=== PATIENT | female | born 1950 | race Caucasian/White ===

== ENCOUNTER 2018-01-02 05:31 | Inpatient (IN) | payer OTHER ==
[2018-01-02] VITALS (7 sets, daily range): BP systolic 132–155; BP diastolic 51–78
[~2018-01-02] VITALS: Ht 170.2 cm; Wt 118.4 kg
--- NOTE | ~2018-01-02 | O ---
[facility] [place] [address] OPERATIVE REPORT Name: JOELLEN WESTBROOK Room #: 150-9 [facility] M.R.#: [id number] Admission: 01/02/18 Attend Phys: Doc Avila MD Discharge: Date of : 54 Report #: [id number] THIS REPORT FOR: //name// CC: Heron Avila DATE OF SERVICE: 01/02/2018 PREOPERATIVE DIAGNOSIS: Left femoral neck insufficiency fracture. POSTOPERATIVE DIAGNOSIS: Left femoral neck insufficiency fracture. PROCEDURE: Percutaneous screw fixation, left femoral neck insufficiency fracture. SURGEON: Doc Avila MD. ANESTHESIA: LMA. IMPLANTS: 7.3 cannulated screws x 3, 90 mm in length x 2 and 85 mm x 1. ESTIMATED BLOOD LOSS: 10 mL. COMPLICATIONS: None. SPECIMENS: None. CONDITION UPON LEAVING THE OPERATING ROOM: Stable. INDICATIONS FOR PROCEDURE: The patient is a 67-year-old female who has had progressive left hip pain. She had an MRI scan, shown her to have an incomplete insufficiency fracture of the medial side of her femoral neck. After discussion with her, she elected for percutaneous screw fixation. DESCRIPTION OF PROCEDURE: Risks, benefits, alternatives, complications were discussed in detail with the patient including but not limited to risk of anesthesia, risk of damage to nerves, arteries, blood vessels, risk for infection, bleeding, risk for continued hip pain and need for reoperation. Informed consent was obtained from the patient. Left hip was appropriately marked in the preoperative holding area. IV Ancef was given for preoperative antibiotics. She was brought to the operating room and placed in supine position on the Abrams table. LMA anesthesia was induced without complication. Feet were padded and placed in the foot bartlett and left lower extremity was placed in slight traction. Right lower extremity was scissored. Timeout was performed properly identifying the patient and procedure as well as the instrumentation and implants. All in the operating room were in agreement. [address] [address] OPERATIVE REPORT Name: JOELLEN WESTBROOK Room #: 150-9 [facility] Elo.#: [id number] Admission: 01/02/18 Attend Phys: Doc Avila MD Discharge: Date of : 54 Report #: [id number] Fluoroscopic imaging was brought in to verify adequate AP and lateral images obtained of the hip. The left hip was then prepped and draped in normal sterile fashion. A lateral incision was made with 10 blade through the skin and fascia. Threaded tip guidewire was placed on the lateral cortex of the femur for the inferior posterior screw. This was taken up into the femoral head under AP and lateral images. Jody gun was then used to place the anterior superior and anterior posterior screw, threaded guidewires. These were then measured. The inferior and anterior superior screws were 90 and posterior superior screw was 85. Lateral cortex was drilled and these screws were placed tightened. After this, final fluoroscopic images were taken to verify adequate placement of the screw into the femoral head and neck. Wound was thoroughly irrigated with normal saline and closed with 2-0 Vicryl, skin mitesh, soft dressing of Adaptic, 4 x 4s, ABD, and Medipore tape were applied. The patient tolerated this procedure well and went to recovery room under care of anesthesia postoperatively. By: 1250 [id number] Doc Avila MD /nt
--- NOTE | ~2018-01-02 | EKG ---
[address] [address] ELECTROCARDIOGRAM REPORT Name: JOELLEN WESTBROOK Room #: 150-9 [facility] M..#: [id number] Admission: 01/02/18 Attend Phys: Doc Avila MD Discharge: Date of : 54 Report #: [id number] THIS REPORT FOR: //name// [facility] Test Date: 2018-01-02 Test Time: 10:48:25 Pat Name: JOELLEN WESTBROOK Department: Room: 150 9 Gender: F Rn Labor And Delivery: ADOLFO : 1950 Requested By: Doc Avila Order Number: [id number] MD: Addison Ambrocio Measurements Intervals [place] Rate: 72 P: -12 DC: 142 QRS: -1 QRSD: 87 T: 57 QT: 396 QTc: 434 Interpretive Statements Sinus rhythm Low voltage, precordial leads Abnormal R-wave progression, early transition No previous ECG available for comparison Electronically Signed On 01-02-2018 13:08:55 CDT by Addison Ambrocio [email or web address] <ELECTRONICALLY SIGNED> By: Addison Ambrocio MD 01/02/18 1308 47 Addison Ambrocio MD /MIKI
[~2018-01-02 05:31] MED LIST: ACTOS 45 MG45 M2 PO; ALLOPURINOL 30300 M1 PO; CRESTOR10 MG PO; CULTURELLE1 EACH PO; IPRAT-ALBUT 0.5-3 ML INH; LOSARTAN POTASS50 MG PO; OXYCODONE HCL10 MG PO; SERTRALINE HCL100 MG PO; VITAMIN D2000 UNIT PO; WELLBUTRIN XL300 MG PO; ZOLPIDEM TARTRA10 MG PO
[2018-01-02 11:03] LABS: CREATININE 2.2 mg/dL (0.6-1.0); POTASSIUM 4.1 mmol/L (3.5-5.1)
[2018-01-02 11:09] LABS: ALBUMIN 3.4 g/dL (3.4-5.0); TOTAL BILIRUBIN 0.4 mg/dL (<0.1-1.0); TOTAL PROTEIN 7.3 g/dL (6.4-8.2)
[2018-01-03] VITALS: BP 136/48
[2018-01-03 05:30] VITALS: BP 145/57
[2018-01-03 07:30] VITALS: BP 129/45
[2018-01-03 17:02] VITALS: BP 119/55
[2018-01-03 19:29] VITALS: BP 122/49
[2018-01-04 04:27] VITALS: BP 143/55
[2018-01-04 14:54] VITALS: BP 113/52
[2018-01-04 19:01] VITALS: BP 98/54
[2018-01-05 03:42] VITALS: BP 123/29
[2018-01-05 03:55] VITALS: BP 130/44
[2018-01-05 08:07] VITALS: BP 119/55
[2018-01-05 16:42] VITALS: BP 138/55
[2018-01-05 19:46] VITALS: BP 113/51
[2018-01-06 07:15] VITALS: BP 126/67
[2018-01-06 10:02] VITALS: BP 126/67
== END 2018-01-06 11:43 | disposition home health service (06) | DRG 481 ==
LOC: OR 05:31 → TBA 05:32 → OR 10:42 → 4W 12:35 → OR 13:12 → 4W 01-03 12:30 → SICU 01-05 19:40 → ENTRNSPT 01-06 11:01 → EDTRNSPTSTS 01-06 11:04 → SICU 01-06 11:43
PROVIDERS: Orthopaedic Surgery
PROC: 0QH736Z Insertion of Intramedullary Internal Fixation Device into Left Upper Femur, Percutaneous Approach (ICD-10-PCS; principal; 2018-01-02)
DX: S72.002A Fracture of unspecified part of neck of left femur, initial encounter for closed fracture (principal); N18.4 Chronic kidney disease, stage 4 (severe); I12.9 Hypertensive chronic kidney disease with stage 1 through stage 4 chronic kidney disease, or unspecified chronic kidney disease; E11.22 Type 2 diabetes mellitus with diabetic chronic kidney disease; E78.5 Hyperlipidemia, unspecified; Z79.899 Other long term (current) drug therapy; W18.39XA Other fall on same level, initial encounter; Y93.89 Activity, other specified; Y92.89 Other specified places as the place of occurrence of the external cause; Y99.8 Other external cause status